=== PATIENT | female | born 1955 | race Caucasian/White ===

== ENCOUNTER 2017-03-23 16:51 | Outpatient (CLI) | payer BC | END 2017-03-23 23:59 | disposition home or self-care (01) | LOC: D.MAMMO 16:51 | DX: Z12.31 Encounter for screening mammogram for malignant neoplasm of breast (principal) ==

== ENCOUNTER 2018-03-21 05:00 | Day surgery (SDC) | payer BC ==
[2018-03-20 14:48] LABS: HEMATOCRIT 42.8 % (36.0-48.0); MCH 27.7 pg (26.0-34.0); MCHC 32.7 g/dL (31.0-37.0); MCV 84.6 fL (80.0-100.0); MEAN PLATELET VOLUME 9.9 fL (7.4-10.4); RBC 5.06 10x6/uL (4.00-5.40); RDW 14.7 % (11.5-14.5); WBC 9.9 10x3/uL (4.8-10.8)
[2018-03-20 14:51] LABS: ANION GAP 14.8 mmol/L (8-16); CALCIUM 9.2 mg/dL (8.5-10.1); CARBON DIOXIDE 25.6 mmol/L (21.0-32.0); CREATININE - SERUM 0.9 mg/dL (0.6-1.3); POTASSIUM - SERUM 4.4 mmol/L (3.5-5.1)
[~2018-03-21] VITALS: Ht 162.6 cm; Wt 118.8 kg
--- NOTE | ~2018-03-21 | OP ---
PATIENT NAME: DANIEL NICE MEDICAL RECORD: [id number] :51 LOCATION:[facility] ADMISSION DATE: SURGEON: CHERYL NG MD DATE OF OPERATION: 03/21/2018 PREOPERATIVE DIAGNOSES: Disc herniation L2-L3, right with lumbar spinal stenosis and foraminal stenosis, L2-L3, right. PROCEDURES: Lumbar laminotomy, medial facetectomy and foraminotomy with discectomy L2-L3, right. SURGEON: Cheryl Ng MD REFERRING PROVIDER: Monik Campoverde MD DESCRIPTION AND TECHNIQUE: After induction of general endotracheal anesthesia, the patient was rolled prone on a Maximo frame. Lumbar spine was prepped and draped in usual sterile fashion. Fluoroscopic x-ray and spinal needle localized the L2-L3 interspace on the right side. A series of dilators was used to advance a MET[employer] retractor at the L2-L3 interspace on the right. Fluoroscopic x-ray confirmed the level. A microscope and Midas Filemon drill were used to perform laminotomy, medial facetectomy, and foraminotomy at L2-L3 on the right. Hypertrophied ligamentum flavum was removed with Cloward rongeurs. Following this, there was obvious free fragment disc herniation emanating from the L2-L3 interspace on the right side. This was removed with the pituitary rongeurs and curettes. Additional material was removed from the posterior one-third of the disc space. Following this, the L2 and L3 nerve roots were completely decompressed. Meticulous hemostasis was maintained throughout the wound. The wound was irrigated with copious amounts of Ancef irrigant solution. The retractor was removed. The fascia was closed with 2-0 Vicryl suture, the subdermal layer was closed with 3-0 Vicryl suture. The skin was closed with adiila. A sterile dressing was applied to the wound. The patient was awakened in good condition, taken to recovery. All counts were reported as correct. Estimated blood loss was minimal. TRANSINT:[id number] Voice Confirmation ID: [id number] DOCUMENT ID: [id number] CHERYL NG MD at 0853 CC: [id number] DICTATION DATE: 04/23/18 0858 BLOOD BANK ORDER CONTROL CLERK: 04/23/18 [id number] [facility] 03/21/[address] [place] [id number]
[~2018-03-21 05:00] MED LIST: GLUCOPHAGE500 MG PO; GLUCOTROL 5 MG T5 MG PO; LISINOPRIL5 MG PO; NORVASC5 MG PO; TOPROL XL100 MG PO
[2018-03-21] MEDS ORDERED: ISOSORBIDE MONO30 M1 PO (06:09)
[2018-03-21] MEDS ORDERED: FENOFIBRATE134 MG PO (06:10)
[2018-03-21] MEDS ORDERED: OMEPRAZOLE20 M1 (06:10)
[2018-03-21] MEDS ORDERED: BACLOFEN10 MG PO (06:10)
[2018-03-21] MEDS ORDERED: PRAVACHOL40 MG PO (06:11)
[2018-03-21 06:20] VITALS: BP 123/70; Ht 162.6 cm; Wt 118.8 kg
== END 2018-03-21 12:10 | disposition home or self-care (01) ==
LOC: D.OPS 05:00 → D.PAN 07:30 → D.OPS 07:30
PROVIDERS: Anesthesiology
DX: M51.26 Other intervertebral disc displacement, lumbar region (principal); M48.061 Spinal stenosis, lumbar region without neurogenic claudication; I10 Essential (primary) hypertension; Z87.891 Personal history of nicotine dependence

== ENCOUNTER → 2018-09-04 15:54 | Outpatient (CLI) | payer BC ==
[2018-03-21 06:20] VITALS: BMI 45.0
[~2018-09-04 15:54] MED LIST changes: +BACLOFEN10 MG PO; +FENOFIBRATE134 MG PO; +ISOSORBIDE MONO30 M1 PO; +OMEPRAZOLE20 M1; +PRAVACHOL40 MG PO
== END | disposition home or self-care (01) ==
LOC: D.MAMMO 09:15
PROVIDERS: ATTEND Emergency Medicine
DX: Z12.31 Encounter for screening mammogram for malignant neoplasm of breast (principal)

== ENCOUNTER 2020-07-12 09:30 | Outpatient (CLI) | payer MEDICARE ==
[2018-03-21 06:20] VITALS: BMI 45.0
== END 2020-07-12 23:59 | disposition home or self-care (01) ==
LOC: D.MAMMO 09:30
PROVIDERS: ATTEND Emergency Medicine
DX: Z12.31 Encounter for screening mammogram for malignant neoplasm of breast (principal)